=== PATIENT | male | born 1935 | race Caucasian/White ===

== ENCOUNTER → 2018-09-08 | Outpatient (CLI) | payer MEDICARE, BC ==
[~2018-09-08] MED LIST: ASPIRIN 32325 MG/TAB PO; ASPIRIN E.C. 8181 MG PO; CALCIUM 600/VIT1 CAP PO; DILTIAZEM180 M1 PO; FINASTERIDE5 MG PO; FLOMAX 0.40.4 MG/CAP PO; MULTAQ400 MG PO; NO HOME MEDICATIONS; PREDNISONE 5MG5 MG PO; PRILOSEC 20MG20 MG PO; TIKOSYN0.25 MG PO; TIKOSYN0.5 MG PO; VITAMIN B1100 MG/ML SL; ZESTRIL 10MG10 MG PO
== END ==
LOC: COL.RAD 14:49
DX: I67.82 Cerebral ischemia (principal)

== ENCOUNTER → 2018-09-28 | Outpatient (CLI) | payer MEDICARE, BC | LOC: COL.RAD 13:38 | DX: Z01.812 Encounter for preprocedural laboratory examination (principal); J94.8 Other specified pleural conditions; Q25.46 Tortuous aortic arch; I77.810 Thoracic aortic ectasia; M46.84 Other specified inflammatory spondylopathies, thoracic region | CPT/HCPCS: Q9967 ==

== ENCOUNTER → 2023-04-14 | Outpatient (CLI) | payer MEDICARE, BC ==
[~2023-04-14] MED LIST changes: +Iohexol 300 - 10 ML VIAL ONE; +Lidocaine PF 2% (20 MG/ML) 2 ML VIAL ONE
== END ==
LOC: MHCPAIN 10:07
DX: M54.16 Radiculopathy, lumbar region (principal); M51.86 Other intervertebral disc disorders, lumbar region
CPT/HCPCS: J1040; Q9967